=== PATIENT | female | born 1960 | race Caucasian/White ===

== ENCOUNTER → 2023-11-01 13:49 | Outpatient (REF) | payer OTHER, SELFPAY | LOC: WDC 13:49 | PROVIDERS: ATTENDING PHYSICIAN Surgery; FAMILY PHYSICIAN Emergency Medicine | DX: R92.8 Other abnormal and inconclusive findings on diagnostic imaging of breast (principal) | CPT/HCPCS: 76642 ==

== ENCOUNTER → 2023-11-22 07:18 | Outpatient (REF) | payer OTHER, SELFPAY | LOC: HWRAD 07:18 | PROVIDERS: ATTENDING PHYSICIAN Physician Assistant Medical; FAMILY PHYSICIAN Emergency Medicine | DX: M25.561 Pain in right knee (principal) | CPT/HCPCS: 73700 ==

== ENCOUNTER → 2024-05-29 13:12 | Outpatient (REF) | payer OTHER, SELFPAY | LOC: HWWDC 13:12 | PROVIDERS: ATTENDING PHYSICIAN Nurse Practitioner Adult Health; FAMILY PHYSICIAN Emergency Medicine | DX: Z12.31 Encounter for screening mammogram for malignant neoplasm of breast (principal) | CPT/HCPCS: 77063; 77067 ==

== ENCOUNTER → 2024-08-14 14:50 | Outpatient (REF) | payer OTHER, SELFPAY | LOC: WDC 14:50 | PROVIDERS: ATTENDING PHYSICIAN Surgery; FAMILY PHYSICIAN Emergency Medicine | DX: R92.2 Inconclusive mammogram (principal) | CPT/HCPCS: 76641 ==